=== PATIENT | male | born 1995 | race African-American/Black ===

== ENCOUNTER 2016-09-26 19:57 | Inpatient (IN) | payer OTHER ==
[2016-09-26 21:25] VITALS: BMI 22.1
--- NOTE | 2016-09-26 21:59 | HP ---
COWS - Scale Resting Pulse: 0= [place] 80 or Below Sweatin= Chills/Flushing Restless Observation: 5= Unable to Sit Still Pupil Size: 2= Moderately Dilated Bone or Joint Aches: 4=Acute Joint/Muscle Pain Runny Nose/ Eye Tearin= None GI Upset > 30mins: 3= Vomiting/Diarrhea Tremor Observation: 2= Slight Tremor Visible Yawning Observation: 0= None Anxiety or Irritability: 2=Irritable/Anxious Goose Flesh Skin: 0=Smooth Skin COWS Score: 19 CIWA Score - CIWA Score Nausea/Vomitin Muscle Tremors: 4-Moderate,w/Arms Extend Anxiety: 4-Mod. Anxious/Guarded Agitation: 4-Moderately Restless Paroxysmal Sweats: 3 Orientation: 1-Uncertain about Date Tacttile Disturbances: 3-Moderate Itch/Numb/Burn Auditory Disturbances: 0-None Visual Disturbances: 0-None Headache: 0-None Present CIWA-Ar Total Score: 22 Admission ROS BHS - HPI Chief Complaint: C/O XANAX AND PERCOCET DEPENDENCE WITH WITHDRAWAL SX'S. SEEKING DETOX TXMENT. Allergies/Adverse Reactions: Allergies Allergy/AdvReac Type Severity Reaction Status Date / Time No Known Allergies Allergy Verified 09/26/16 21:53 History of Present Illness: 20 Y.O. MALE WITH BENZO AND OXY DEPENDENCE ADMITTED FOR DETOX TXMENT. [facility] HE HAS BEEN REFFER[facility] BY [facility]. Exam Limitations: No Limitations - Ebola screening Have you traveled outside of the country in the last 21 days: No (N) Have you had contact with anyone from an Ebola affected area: No Have you been sick,other than usual withdrawal symptoms: No Do you have a fever: No - Review of Systems Constitutional: Chills, Loss of Appetite, Malaise, Night Sweats, Changes in sleep EENT: reports: No Symptoms Reported Respiratory: reports: Shortness of Breath Cardiac: reports: No Symptoms Reported GI: reports: Nausea, Poor Appetite, Vomiting : reports: No Symptoms Reported Musculoskeletal: reports: Back Pain Integumentary: reports: No Symptoms Reported Neuro: reports: No Symptoms reported Endocrine: reports: No Symptoms Reported Hematology: reports: No Symptoms Reported Psychiatric: reports: Anxious Other Systems: Reviewed and Negative Patient History - Patient Medical History Hx Anemia: No Hx Asthma: Yes (CHILDHOOD) Hx Chronic Obstructive Pulmonary Disease (COPD): No Hx Cancer: No Hx Cardiac Disorders: No Hx Congestive Heart Failure: No Hx Hypertension: No Hx Hypercholesterolemia: No Hx Pacemaker: No HX Cerebrovascular Accident: No Hx Seizures: No Hx Dementia: No Hx Diabetes: No Hx Gastrointestinal Disorders: No Hx Liver Disease: No Hx Genitourinary Disorders: No Hx Sexually Transmitted Disorders: No Hx Renal Disease (ESRD): No Hx Thyroid Disease: No Hx Human Immunodeficiency Virus (HIV): No Hx Hepatitis C: No Hx Depression: No Hx Suicide Attempt: No Hx Bipolar Disorder: No Hx Schizophrenia: No Other Medical History: DENIES - Patient Surgical History Past Surgical History: No - PPD History Previous Implant?: No Implanted On Prior [facility] Admission?: No PPD to be Administered?: Yes - Smoking Cessation Smoking history: Current every day smoker Have you smoked in the past 12 months: Yes Aproximately how many cigarettes per day: 5 Cigars Per Day: 0 Hx Chewing Tobacco Use: No Initiated information on smoking cessation: Yes 'Breaking Loose' booklet given: 09/26/16 - Substance & Tx. History Hx Alcohol Use: No Hx Substance Use: Yes Substance Use Type: Opiates (PERCOCET), Tranquilizers (XANAX) Hx Substance Use Treatment: No - Substances Abused PERCOCETS Route: Oral Frequency: Daily Amount used: 100MG Age of first use: 18 Date of Last Use: 09/26/16 (50 MG) XANAX Route: Oral Frequency: Daily Amount used: 10MG Age of first use: 18 Date of Last Use: 09/26/16 Family Disease History - Family Disease History Family Disease History: Other: Father (HTN) Admission Physical Exam S - Vital Signs Vital Signs: Vital Signs - 24 hr 09/26/16 09/26/16 21:22 21:42 Temperature 96.3 F L 96.3 F L Pulse Rate 64 64 Respiratory 18 18 Rate Blood Pressure 116/74 116/74 - Physical General Appearance: Yes: Appropriately Dressed, Tremorous, Anxious HEENTM: Yes: EOMI, Normocephalic, Normal Voice, DEMETRICE, Pharynx Normal Respiratory: Yes: Chest Non-Tender, No Respiratory Distress, Other (COARSE BREATH SOUNDS) Neck: Yes: No masses,lesions,Nodules, Supple, Trachea in good position Breast: Yes: Breast Exam Deferred Cardiology: Yes: Regular Rhythm, Regular Rate, S1, S2 Abdominal: Yes: Normal Bowel Sounds, Non Tender, Flat, Soft Genitourinary: Yes: Within Normal Limits Back: Yes: Within Normal Limits Musculoskeletal: Yes: full range of Motion, Gait Steady Extremities: Yes: Normal Capillary Refill, Normal Range of Motion, Non-Tender, Tremors Neurological: Yes: car sales consultant II-XII NML intact, Fully Oriented, Alert, Motor Strength 5/5 Integumentary: Yes: Normal Color, Warm Lymphatic: Yes: Within Normal Limits - Diagnostic (1) Opioid dependence with withdrawal Current Visit: Yes Status: Chronic (2) Sedative, hypnotic or anxiolytic dependence with withdrawal, uncomplicated Current Visit: Yes Status: Chronic (3) Nicotine dependence Current Visit: Yes Status: Chronic Qualifiers: Nicotine product type: cigarettes Substance use status: uncomplicated Qualified Code(s): F17.210 - Nicotine dependence, cigarettes, uncomplicated Cleared for Admission [facility] - Detox or Rehab [facility] Level of Care: Medically Managed Detox Regimen/Protocol: Methadone/Valium S Breath Alcohol Content Breath Alcohol Content: 0 Urine Drug Screen - Results Drug Screen Negative: No Urine Drug Screen Results: BZO-Benzodiazepines, OXY-Oxycodone
[2016-09-26] MEDS ORDERED: MAGNESIUM HYDROX 2400MG/30ML ORAL SUSPENSION 30 ML CUP PO PRN (22:12)
[2016-09-26] MEDS ORDERED: diazePAM 5 MG TABLET PO PRN (22:12)
[2016-09-26] MEDS ORDERED: IBUPROFEN 400 MG TABLET (FP) PO PRN (22:12)
[2016-09-26] MEDS ORDERED: diazePAM 5 MG TABLET PO ONE (22:12)
[2016-09-26] MEDS ORDERED: hydrOXYzine PAMOATE 50 MG CAPSULE (FP) PO PRN (22:12)
[2016-09-26] MEDS ORDERED: MENTHOL/PHENOL 1 EACH UD MM PRN (22:12)
[2016-09-26] MEDS ORDERED: guaiFENesin/D-METHORPHAN HB 10 ML UNIT-DOSE CUPS PO PRN (22:12)
[2016-09-26] MEDS ORDERED: P-EPHED 60MG/TRIPROLIDI 2.5MG TABLET PO PRN (22:12)
[2016-09-26] MEDS ORDERED: METHADONE HCL 10 MG TABLET (FOR DETOX USE ONLY) PO ONE ×2 (22:12→23:00)
[2016-09-26] MEDS ORDERED: LOPERAMIDE HCL 2 MG CAPSULE PO PRN (22:12)
[2016-09-26] MEDS ORDERED: ACETAMINOPHEN 325 MG TABLET (FP) PO PRN (22:12)
[2016-09-26] MEDS ORDERED: MAG HYDROX/AL HYDROX/SIMETH 30 ML UNIT-DOSE CUP PO PRN (22:12)
[2016-09-26] MEDS ORDERED: MAGNESIUM CITRATE 300 ML BOTTLE PO PRN (22:12)
[2016-09-26] MEDS: diazePAM 5 MG TABLET PO SCH (23:00)
[2016-09-27] MEDS: diazePAM 5 MG TABLET PO SCH ×3 (05:54→22:26)
[2016-09-27] MEDS ORDERED: METHADONE HCL 10 MG TABLET (FOR DETOX USE ONLY) PO SCH (10:00)
[2016-09-27 10:32] LABS: MCH 28.6 pg (25.7-33.7); MEAN CELL VOLUME 83.9 fl (80-96); MEAN PLT VOLUME 9.5 fl (7.5-11.1); PLATELET COUNT 171 K/MM3 (134-434); RDW 13.8 % (11.9-15.9)
[2016-09-27 10:57] LABS: ALBUMIN 3.3 g/dl (3.4-5.0); ANION GAP 10 (8-16); CO2 27 mmol/L (21-32); GLUCOSE,RANDOM 91 mg/dL (74-106); SGOT/AST 29 U/L (15-37); SGPT/ALT 74 U/L (12-78)
[2016-09-27 10:59] LABS: ALK PHOS 80 U/L (45-117); BILIRUBIN,TOTAL 0.3 mg/dL (0.2-1.0); CALCIUM 8.4 mg/dL (8.5-10.1); COCKROFT - GAULT 124.94; CREATININE 0.9 mg/dL (0.7-1.3)
[2016-09-27] MEDS: NICOTINE 14 MG/24 HOURS TOPICAL PATCH TD SCH (11:01)
[2016-09-27] MEDS: PRENATAL VITAMINS W/ FOLIC ACID TABLET (FP) PO SCH (11:01)
--- NOTE | 2016-09-27 11:52 | PN ---
S CIWA - CIWA Score Nausea/Vomitin-No Nausea/No Vomiting Muscle Tremors: 3 Anxiety: 4-Mod. Anxious/Guarded Agitation: 3 Paroxysmal Sweats: 3 Orientation: 0-Oriented Tacttile Disturbances: 0-None Auditory Disturbances: 0-None Visual Disturbances: 0-None Headache: 0-None Present CIWA-Ar Total Score: 13 BHS COWS - Scale Resting Pulse: 1= [place] 81-100 Sweatin=Flushed/Facial Moisture Restless Observation: 1= Difficult to Sit Still Pupil Size: 0= Normal to Room Light Bone or Joint Aches: 2= Severe Diffuse Aches Runny Nose/ Eye Tearin= Runny Nose/Eyes GI Upset > 30mins: 2= Nausea/Diarrhea Tremor Observation of Outstretched Hands: 2= Slight Tremor Visible Yawning Observation: 1= 1-2x During Session Anxiety or Irritability: 2=Irritable/Anxious Goose Flesh Skin: 0=Smooth Skin COWS Score: 15 BHS Progress Note (SOAP) Subjective: Anxiety,tremors,sweating,interrupted sleep,restless. Objective: 09/27/16 11:47 Last Vital Signs Temp Pulse Resp BP Pulse Ox 95.9 F L 84 18 121/72 09/27/16 10:00 09/27/16 10:00 09/27/16 10:00 09/27/16 10:00 Laboratory Results - last 24 hr 09/27/16 09/27/16 07:00 07:00 WBC 5.0 RBC 4.63 Hgb 13.2 Hct 38.8 MCV 83.9 MCHC 34.0 RDW 13.8 Plt Count 171 MPV 9.5 Sodium 143 Potassium 3.9 Chloride 106 Carbon Dioxide 27 Anion Gap 10 BUN 15 Creatinine 0.9 Creat Clearance w eGFR > 60 Random Glucose 91 Calcium 8.4 L Total Bilirubin 0.3 AST 29 ALT 74 Alkaline Phosphatase 80 Total Protein 6.0 L Albumin 3.3 L labs noted EKG reveals moderate voltage criteria for LVH, ST elevation with T-wave inversion consider early repolarization or pericarditis. Pt. has no symptoms of chest pain. Assessment: 09/27/16 11:48 Withdrawal sx. EKG changes most likely caused by drug use in a patient with thin chest. Plan: Continue detox
[2016-09-27 12:39] LABS: HIV 1 & 2 AB NEGATIVE; HIV 1 AGp24 NEGATIVE
[2016-09-27 14:01] LABS: URINE APPEARANCE CLEAR; URINE BILIRUBIN NEGATIVE (NEGATIVE); URINE BLOOD NEGATIVE (NEGATIVE); URINE COLOR YELLOW; URINE GLUCOSE (UA) NEGATIVE (NEGATIVE); URINE KETONE NEGATIVE (NEGATIVE); URINE LEUK ESTERASE NEGATIVE (NEGATIVE); URINE NITRITE NEGATIVE (NEGATIVE); URINE PROTEIN NEGATIVE (NEGATIVE); URINE UROBILINOGEN NEGATIVE E.U./dl (0.2-1.0)
--- NOTE | 2016-09-27 17:19 | EKG ---
Test Reason : Blood Pressure : / mmHG Vent. Rate : 055 BPM Atrial Rate : 055 BPM P-R Int : 132 ms QRS Dur : 096 ms QT Int : 442 ms P-R-T Axes : 036 049 014 degrees QTc Int : 422 ms SINUS BRADYCARDIA MODERATE VOLTAGE CRITERIA FOR LVH, MAY BE NORMAL VARIANT ST ELEVATION, CONSIDER EARLY REPOLARIZATION, PERICARDITIS, OR INJURY NONSPECIFIC ST AND T WAVE ABNORMALITY ABNORMAL ECG WHEN COMPARED WITH ECG OF 26-SEP-2016 22:04, T WAVE INVERSION MORE EVIDENT IN ANTERIOR LEADS Confirmed by FRANKI ROSS MD ([id number]) on 09/27/2016 5:18:41 PM Referred By: Confirmed By:FRANKI ROSS MD
--- NOTE | 2016-09-27 17:20 | EKG ---
Test Reason : Blood Pressure : / mmHG Vent. Rate : 051 BPM Atrial Rate : 051 BPM P-R Int : 130 ms QRS Dur : 088 ms QT Int : 422 ms P-R-T Axes : 058 049 020 degrees QTc Int : 388 ms SINUS BRADYCARDIA ABNORMAL ECG NO PREVIOUS ECGS AVAILABLE Confirmed by FRANKI ROSS MD ([id number]) on 09/27/2016 5:19:43 PM Referred By: Confirmed By:FRANKI ROSS MD
[2016-09-27] MEDS: THIAMINE HCL 100 MG TABLET (FP) PO SCH (22:26)
[2016-09-27] MEDS: diphenhydrAMINE HCL 50 MG CAPSULE PO PRN (22:26)
[2016-09-27] MEDS ORDERED: NICOTINE POLACRILEX 2 MG GUM BUC PRN (23:48)
[2016-09-28] MEDS: NICOTINE 14 MG/24 HOURS TOPICAL PATCH TD SCH (10:44)
[2016-09-28] MEDS: METHADONE HCL 5 MG TABLET (FOR DETOX USE ONLY) PO SCH (10:44)
[2016-09-28] MEDS: diazePAM 5 MG TABLET PO SCH ×2 (10:44→22:34)
[2016-09-28] MEDS: PRENATAL VITAMINS W/ FOLIC ACID TABLET (FP) PO SCH (10:44)
--- NOTE | 2016-09-28 11:31 | PN ---
[facility] CIWA - CIWA Score Nausea/Vomitin Muscle Tremors: 3 Anxiety: 3 Agitation: 2 Paroxysmal Sweats: 1-Minimal Palms Moist Orientation: 0-Oriented Tacttile Disturbances: 1-Very Mild Itch/Numbness Auditory Disturbances: 1-Very Mild Visual Disturbances: 1-Very Mild Sensitivity Headache: 2-Mild CIWA-Ar Total Score: 17 BHS COWS - Scale Resting Pulse: 0= [place] 80 or Below Sweatin= Chills/Flushing Restless Observation: 3= Extraneous Movement Pupil Size: 1= Pupils >than Normal Bone or Joint Aches: 2= Severe Diffuse Aches Runny Nose/ Eye Tearin= Runny Nose/Eyes GI Upset > 30mins: 3= Vomiting/Diarrhea Tremor Observation of Outstretched Hands: 2= Slight Tremor Visible Yawning Observation: 1= 1-2x During Session Anxiety or Irritability: 2=Irritable/Anxious Goose Flesh Skin: 0=Smooth Skin COWS Score: 17 S Progress Note (SOAP) Subjective: ALERT,IRRITABLE,ANXIOUS,INTERRUPTED SLEEP,PAIN IN THE BODY AND BACK Objective: 09/28/16 11:28 Vital Signs Temperature 98.5 F 09/28/16 10:14 Pulse Rate 58 L 09/28/16 10:14 Respiratory Rate 18 09/28/16 10:14 Blood Pressure 118/64 09/28/16 10:14 O2 Sat by Pulse Oximetry (%) Laboratory Last Values WBC 5.0 K/mm3 (4.0-10.0) 09/27/16 07:00 RBC 4.63 M/mm3 (4.00-5.60) 09/27/16 07:00 Hgb 13.2 GM/dL (11.7-16.9) 09/27/16 07:00 Hct 38.8 % (35.4-49) 09/27/16 07:00 MCV 83.9 fl (80-96) 09/27/16 07:00 MCHC 34.0 g/dl (32.0-35.9) 09/27/16 07:00 RDW 13.8 % (11.9-15.9) 09/27/16 07:00 Plt Count 171 K/MM3 (134-434) 09/27/16 07:00 MPV 9.5 fl (7.5-11.1) 09/27/16 07:00 Sodium 143 mmol/L (136-145) 09/27/16 07:00 Potassium 3.9 mmol/L (3.5-5.1) 09/27/16 07:00 Chloride 106 mmol/L (98-107) 09/27/16 07:00 Carbon Dioxide 27 mmol/L (21-32) 09/27/16 07:00 Anion Gap 10 (8-16) 09/27/16 07:00 BUN 15 mg/dL (7-18) 09/27/16 07:00 Creatinine 0.9 mg/dL (0.7-1.3) 09/27/16 07:00 Creat Clearance w eGFR > 60 (>60) 09/27/16 07:00 Random Glucose 91 mg/dL (74-106) 09/27/16 07:00 Calcium 8.4 mg/dL (8.5-10.1) L 09/27/16 07:00 Total Bilirubin 0.3 mg/dL (0.2-1.0) 09/27/16 07:00 AST 29 U/L (15-37) 09/27/16 07:00 ALT 74 U/L (12-78) 09/27/16 07:00 Alkaline Phosphatase 80 U/L (45-117) 09/27/16 07:00 Total Protein 6.0 g/dl (6.4-8.2) L 09/27/16 07:00 Albumin 3.3 g/dl (3.4-5.0) L 09/27/16 07:00 Urine Color Yellow 09/27/16 11:50 Urine Appearance Clear 09/27/16 11:50 Urine pH 5.0 (5.0-8.0) 09/27/16 11:50 Ur Specific [place] 1.020 (1.005-1.025) 09/27/16 11:50 Urine Protein Negative (NEGATIVE) 09/27/16 11:50 Urine Glucose (UA) Negative (NEGATIVE) 09/27/16 11:50 Urine Ketones Negative (NEGATIVE) 09/27/16 11:50 Urine Blood Negative (NEGATIVE) 09/27/16 11:50 Urine Nitrite Negative (NEGATIVE) 09/27/16 11:50 Urine Bilirubin Negative (NEGATIVE) 09/27/16 11:50 Urine Urobilinogen Negative E.U./dl (0.2-1.0) 09/27/16 11:50 Ur Leukocyte Esterase Negative (NEGATIVE) 09/27/16 11:50 RPR Titer Nonreactive (NONREACTIVE) 09/27/16 07:00 Hepatitis C Antibody 0.4 s/co ratio (0.0-0.9) 09/26/16 07:00 HIV 1&2 Antibody Screen Negative 09/27/16 07:00 HIV P24 Antigen Negative 09/27/16 07:00 Assessment: 09/28/16 11:30 WITHDRAWAL SYMPTOM 09/28/16 11:30 NO CHEST PAIN,NO SOB,NO DIZZINESS Plan: WITHDRAWAL SYMPTOM,CONTINUE DETOX
[2016-09-28] MEDS: diphenhydrAMINE HCL 50 MG CAPSULE PO PRN (22:33)
[2016-09-28] MEDS: THIAMINE HCL 100 MG TABLET (FP) PO SCH (22:33)
--- NOTE | 2016-09-29 09:56 | PN ---
BHS Progress Note (SOAP) Subjective: Sweating,interrupted sleep,restless Objective: 09/29/16 09:52 Vital Signs - 8 hr 09/29/16 09/29/16 03:23 09:26 Temperature 96.2 F L Pulse Rate 56 L Respiratory 18 18 Rate Blood Pressure 115/62 Laboratory Tests 09/26/16 09/27/16 09/27/16 07:00 07:00 07:00 WBC 5.0 RBC 4.63 Hgb 13.2 Hct 38.8 MCV 83.9 MCHC 34.0 RDW 13.8 Plt Count 171 MPV 9.5 Sodium 143 Potassium 3.9 Chloride 106 Carbon Dioxide 27 Anion Gap 10 BUN 15 Creatinine 0.9 Creat Clearance w eGFR > 60 Random Glucose 91 Calcium 8.4 L Total Bilirubin 0.3 AST 29 ALT 74 Alkaline Phosphatase 80 Total Protein 6.0 L Albumin 3.3 L Urine Color Urine Appearance Urine pH Ur Specific [place] Urine Protein Urine Glucose (UA) Urine Ketones Urine Blood Urine Nitrite Urine Bilirubin Urine Urobilinogen Ur Leukocyte Esterase RPR Titer Hepatitis C Antibody 0.4 HIV 1&2 Antibody Screen HIV P24 Antigen 09/27/16 09/27/16 09/27/16 07:00 07:00 11:50 WBC RBC Hgb Hct MCV MCHC RDW Plt Count MPV Sodium Potassium Chloride Carbon Dioxide Anion Gap BUN Creatinine Creat Clearance w eGFR Random Glucose Calcium Total Bilirubin AST ALT Alkaline Phosphatase Total Protein Albumin Urine Color Yellow Urine Appearance Clear Urine pH 5.0 Ur Specific [place] 1.020 Urine Protein Negative Urine Glucose (UA) Negative Urine Ketones Negative Urine Blood Negative Urine Nitrite Negative Urine Bilirubin Negative Urine Urobilinogen Negative Ur Leukocyte Esterase Negative RPR Titer Nonreactive Hepatitis C Antibody HIV 1&2 Antibody Screen Negative HIV P24 Antigen Negative labs noted Assessment: 09/29/16 09:56 Withdrawal sx. Plan: Continue detox
[2016-09-29] MEDS: diazePAM 5 MG TABLET PO SCH ×2 (10:44→22:38)
[2016-09-29] MEDS: METHADONE HCL 5 MG TABLET (FOR DETOX USE ONLY) PO SCH (10:44)
[2016-09-29] MEDS: PRENATAL VITAMINS W/ FOLIC ACID TABLET (FP) PO SCH (10:44)
[2016-09-29] MEDS: NICOTINE 14 MG/24 HOURS TOPICAL PATCH TD SCH (10:44)
[2016-09-29] MEDS: THIAMINE HCL 100 MG TABLET (FP) PO SCH (22:38)
[2016-09-30] MEDS: PRENATAL VITAMINS W/ FOLIC ACID TABLET (FP) PO SCH (09:45)
[2016-09-30] MEDS: NICOTINE 14 MG/24 HOURS TOPICAL PATCH TD SCH (09:46)
[2016-09-30] MEDS ORDERED: METHADONE HCL 10 MG TABLET (FOR DETOX USE ONLY) PO SCH (10:00)
[2016-09-30] MEDS ORDERED: diazePAM 5 MG TABLET PO SCH (10:00)
--- NOTE | 2016-09-30 14:06 | PN ---
BHS Progress Note (SOAP) Subjective: Sweating,interrupted sleep,restless Objective: 09/30/16 14:04 Vital Signs - 8 hr 09/30/16 09/30/16 09/30/16 06:16 09:47 13:09 Temperature 97.4 F L 97.7 F 97.6 F Pulse Rate 60 78 72 Respiratory 16 18 18 Rate Blood Pressure 118/68 108/72 121/65 Laboratory Last Values WBC 5.0 K/mm3 (4.0-10.0) 09/27/16 07:00 RBC 4.63 M/mm3 (4.00-5.60) 09/27/16 07:00 Hgb 13.2 GM/dL (11.7-16.9) 09/27/16 07:00 Hct 38.8 % (35.4-49) 09/27/16 07:00 MCV 83.9 fl (80-96) 09/27/16 07:00 MCHC 34.0 g/dl (32.0-35.9) 09/27/16 07:00 RDW 13.8 % (11.9-15.9) 09/27/16 07:00 Plt Count 171 K/MM3 (134-434) 09/27/16 07:00 MPV 9.5 fl (7.5-11.1) 09/27/16 07:00 Sodium 143 mmol/L (136-145) 09/27/16 07:00 Potassium 3.9 mmol/L (3.5-5.1) 09/27/16 07:00 Chloride 106 mmol/L (98-107) 09/27/16 07:00 Carbon Dioxide 27 mmol/L (21-32) 09/27/16 07:00 Anion Gap 10 (8-16) 09/27/16 07:00 BUN 15 mg/dL (7-18) 09/27/16 07:00 Creatinine 0.9 mg/dL (0.7-1.3) 09/27/16 07:00 Creat Clearance w eGFR > 60 (>60) 09/27/16 07:00 Random Glucose 91 mg/dL (74-106) 09/27/16 07:00 Calcium 8.4 mg/dL (8.5-10.1) L 09/27/16 07:00 Total Bilirubin 0.3 mg/dL (0.2-1.0) 09/27/16 07:00 AST 29 U/L (15-37) 09/27/16 07:00 ALT 74 U/L (12-78) 09/27/16 07:00 Alkaline Phosphatase 80 U/L (45-117) 09/27/16 07:00 Total Protein 6.0 g/dl (6.4-8.2) L 09/27/16 07:00 Albumin 3.3 g/dl (3.4-5.0) L 09/27/16 07:00 Urine Color Yellow 09/27/16 11:50 Urine Appearance Clear 09/27/16 11:50 Urine pH 5.0 (5.0-8.0) 09/27/16 11:50 Ur Specific [place] 1.020 (1.005-1.025) 09/27/16 11:50 Urine Protein Negative (NEGATIVE) 09/27/16 11:50 Urine Glucose (UA) Negative (NEGATIVE) 09/27/16 11:50 Urine Ketones Negative (NEGATIVE) 09/27/16 11:50 Urine Blood Negative (NEGATIVE) 09/27/16 11:50 Urine Nitrite Negative (NEGATIVE) 09/27/16 11:50 Urine Bilirubin Negative (NEGATIVE) 09/27/16 11:50 Urine Urobilinogen Negative E.U./dl (0.2-1.0) 09/27/16 11:50 Ur Leukocyte Esterase Negative (NEGATIVE) 09/27/16 11:50 RPR Titer Nonreactive (NONREACTIVE) 09/27/16 07:00 Hepatitis C Antibody 0.4 s/co ratio (0.0-0.9) 09/26/16 07:00 HIV 1&2 Antibody Screen Negative 09/27/16 07:00 HIV P24 Antigen Negative 09/27/16 07:00 labs noted Assessment: 09/30/16 14:05 Withdrawal sx. Plan: Continue detox
[2016-09-30] MEDS: diphenhydrAMINE HCL 50 MG CAPSULE PO PRN (23:05)
[2016-09-30] MEDS: THIAMINE HCL 100 MG TABLET (FP) PO SCH (23:05)
[2016-10-01] MEDS ORDERED: METHADONE HCL 5 MG TABLET (FOR DETOX USE ONLY) PO SCH (06:00)
[2016-10-01 06:30] VITALS: BP 118/70; PULSE 53; TEMP 96.4
--- NOTE | 2016-10-01 16:25 | DS ---
[facility] Detox Discharge Summary Admission Date: 09/26/16 Discharge Date: 10/01/16 - History Present History: Opioid Dependence, Sedative Dependence Additional Comments: ADVISED PATIENT TO FOLLOW-UP WITH WILDLIFE POLICY PROFESSIONAL AFTER DISCHARGE FROM DETOX FOR GENERAL MEDICAL ASSESSMENT. Pertinent Past History: Asthma. - Physical Exam Results Vital Signs: Vital Signs Temperature 96.4 F L 10/01/16 06:29 Pulse Rate 53 L 10/01/16 06:29 Respiratory Rate 18 10/01/16 06:29 Blood Pressure 118/70 10/01/16 06:29 O2 Sat by Pulse Oximetry (%) Pertinent Admission Physical Exam Findings: WITHDRAWAL SYMPTOMS. Laboratory Tests 09/26/16 09/27/16 09/27/16 07:00 07:00 07:00 WBC 5.0 RBC 4.63 Hgb 13.2 Hct 38.8 MCV 83.9 MCHC 34.0 RDW 13.8 Plt Count 171 MPV 9.5 Sodium 143 Potassium 3.9 Chloride 106 Carbon Dioxide 27 Anion Gap 10 BUN 15 Creatinine 0.9 Creat Clearance w eGFR > 60 Random Glucose 91 Calcium 8.4 L Total Bilirubin 0.3 AST 29 ALT 74 Alkaline Phosphatase 80 Total Protein 6.0 L Albumin 3.3 L Urine Color Urine Appearance Urine pH Ur Specific [place] Urine Protein Urine Glucose (UA) Urine Ketones Urine Blood Urine Nitrite Urine Bilirubin Urine Urobilinogen Ur Leukocyte Esterase RPR Titer Hepatitis C Antibody 0.4 HIV 1&2 Antibody Screen HIV P24 Antigen 09/27/16 09/27/16 09/27/16 07:00 07:00 11:50 WBC RBC Hgb Hct MCV MCHC RDW Plt Count MPV Sodium Potassium Chloride Carbon Dioxide Anion Gap BUN Creatinine Creat Clearance w eGFR Random Glucose Calcium Total Bilirubin AST ALT Alkaline Phosphatase Total Protein Albumin Urine Color Yellow Urine Appearance Clear Urine pH 5.0 Ur Specific [place] 1.020 Urine Protein Negative Urine Glucose (UA) Negative Urine Ketones Negative Urine Blood Negative Urine Nitrite Negative Urine Bilirubin Negative Urine Urobilinogen Negative Ur Leukocyte Esterase Negative RPR Titer Nonreactive Hepatitis C Antibody HIV 1&2 Antibody Screen Negative HIV P24 Antigen Negative LABS NOTED. - Treatment Hospital Course: Detox Protocol Followed, Detoxed Safely, Responded well, Discharged Condition Good Patient has Accepted a Rehab Referral to: NO - PT. ELECTING TO GO TO RETURN TO PREVIOUS OUTPATIENT DAY PROGRAM. - Medication Discharge Medications: Ambulatory Orders NK [No Known Home Medication] 09/26/16 - Diagnosis (1) Opioid dependence with withdrawal Status: Acute (2) Sedative, hypnotic or anxiolytic dependence with withdrawal, uncomplicated Status: Acute (3) Nicotine dependence Status: Chronic Qualifiers: Nicotine product type: cigarettes Substance use status: uncomplicated Qualified Code(s): F17.210 - Nicotine dependence, cigarettes, uncomplicated - AMA Did Patient Leave Against Medical Advice: No
== END 2016-10-01 09:01 | disposition home or self-care (01) | DRG 773 ==
LOC: YASAS 19:57 → Y3N 22:26
PROVIDERS: ADMIT Internal Medicine; ATTEND Internal Medicine
PROC: HZ2ZZZZ Detoxification Services for Substance Abuse Treatment (ICD-10-PCS; principal; 2016-10-01)
DX: F11.23 Opioid dependence with withdrawal (principal); F13.230 Sedative, hypnotic or anxiolytic dependence with withdrawal, uncomplicated; F17.210 Nicotine dependence, cigarettes, uncomplicated
CPT/HCPCS: 36415; 80053; 81003; 85027; 86593; 86803; 87389; 93005; 93010

== ENCOUNTER 2018-08-07 21:27 | Inpatient (IN) | payer OTHER ==
[2018-08-07 22:35] VITALS: BMI 22.8
--- NOTE | 2018-08-07 23:48 | HP ---
COWS - Scale Resting Pulse: 0= [place] 80 or Below Sweatin=Flushed/Facial Moisture Restless Observation: 0= Sits Still Pupil Size: 1= Pupils >than Normal Bone or Joint Aches: 2= Severe Diffuse Aches Runny Nose/ Eye Tearin= Runny Nose/Eyes GI Upset > 30mins: 3= Vomiting/Diarrhea (vomiting x 1, diarrhea x 2) Tremor Observation: 4= Gross Tremor/Twitching Yawning Observation: 1= 1-2x During Session Anxiety or Irritability: 4=Extreme Anxiety Goose Flesh Skin: 0=Smooth Skin COWS Score: 19 CIWA Score - Admission Criteria [facility] Guidelines: Admission for Medically Managed Detox: Requires at least one of the followin. CIWA greater than 12 2. Seizures within the past 24 hours 3. Delirium tremens within the past 24 hours 4. Hallucinations within the past 24 hours 5. Acute intervention needed for co occurring medical disorder 6. Acute intervention needed for co occurring psychiatric disorder 7. Severe withdrawal that cannot be handled at a lower level of care (continued vomiting, continued diarrhea, abnormal vital signs) requiring intravenous medication and/or fluids 8. Admission ROS [facility] Chief Complaint: Heroin withdrawal symptoms Allergies/Adverse Reactions: Allergies Allergy/AdvReac Type Severity Reaction Status Date / Time No Known Allergies Allergy Verified 09/26/16 21:53 History of Present Illness: 22 years old male with 6 months history of heroin dependence is seeking admission to detox. Patient last admission was in 2017 to detox from opioid ( Percocet). He reports insignificant period of sobriety. He has medical history of asthma. He denies suicide attempt and suicidal ideation at this time Exam Limitations: No Limitations - Ebola screening Have you traveled outside of the country in the last 21 days: No (N) Have you had contact with anyone from an Ebola affected area: No Have you been sick,other than usual withdrawal symptoms: No Do you have a fever: No - Review of Systems Constitutional: Chills, Malaise, Night Sweats, Changes in sleep EENT: reports: No Symptoms Reported, Nose Congestion, Sinus Pressure Respiratory: reports: No Symptoms reported Cardiac: reports: No Symptoms Reported GI: reports: Diarrhea, Nausea, Poor Appetite, Vomiting, Abdominal cramping : reports: No Symptoms Reported Musculoskeletal: reports: Back Pain Integumentary: reports: Dryness, Flushing Neuro: reports: Tremors Endocrine: reports: No Symptoms Reported Hematology: reports: No Symptoms Reported Psychiatric: reports: Mood/Affect Appropiate, Orientated x3 Other Systems: Reviewed and Negative Patient History - Patient Medical History Hx Anemia: No Hx Asthma: Yes (CHILDHOOD - Albuterol) Hx Chronic Obstructive Pulmonary Disease (COPD): No Hx Cancer: No Hx Cardiac Disorders: No Hx Congestive Heart Failure: No Hx Hypertension: No Hx Hypercholesterolemia: No Hx Pacemaker: No HX Cerebrovascular Accident: No Hx Seizures: No Hx Dementia: No Hx Diabetes: No Hx Gastrointestinal Disorders: No Hx Liver Disease: No Hx Genitourinary Disorders: No Hx Sexually Transmitted Disorders: No Hx Renal Disease (ESRD): No Hx Thyroid Disease: No Hx Human Immunodeficiency Virus (HIV): No Hx Hepatitis C: No Hx Depression: No Hx Suicide Attempt: No Hx Bipolar Disorder: No Hx Schizophrenia: No - Patient Surgical History Past Surgical History: No - PPD History Previous Implant?: Yes Documented Results: Negative w/proof Date: 09/28/16 PPD to be Administered?: Yes - Reproductive History Patient is a Female of Child Bearing Age (11 -55 yrs old): No (MALE) - Smoking Cessation Smoking history: Current every day smoker Have you smoked in the past 12 months: Yes Aproximately how many cigarettes per day: 5 Cigars Per Day: 0 Hx Chewing Tobacco Use: No Initiated information on smoking cessation: Yes 'Breaking Loose' booklet given: 08/07/18 - Substance & Tx. History Hx Alcohol Use: No Hx Substance Use: Yes Substance Use Type: Heroin Hx Substance Use Treatment: No - Substances Abused Heroin Route: Inhalation Frequency: Daily Amount used: 8 bags Age of first use: 20 Date of Last Use: 08/05/18 Family Disease History - Family Disease History Family Disease History: Other: Father (HTN) Admission Physical Exam BHS - Vital Signs Vital Signs: Vital Signs - 24 hr 08/07/18 22:31 Temperature 97.9 F Pulse Rate 66 Respiratory 19 Rate Blood Pressure 147/87 - Physical General Appearance: Yes: Moderate Distress, Tremorous, Anxious HEENTM: Yes: EOMI, Normal ENT Inspection, Normal Voice Respiratory: Yes: Lungs Clear, Normal Breath Sounds, No Respiratory Distress Neck: Yes: Supple Breast: Yes: Breast Exam Deferred Cardiology: Yes: Regular Rhythm, Regular Rate Abdominal: Yes: Normal Bowel Sounds Genitourinary: Yes: Within Normal Limits Back: Yes: Normal Inspection Musculoskeletal: Yes: Muscle Pain Extremities: Yes: Tremors Neurological: Yes: Alert, Normal Mood/Affect Integumentary: Yes: Warm Lymphatic: Yes: Within Normal Limits - Diagnostic (1) Asthma Current Visit: Yes Status: Chronic Qualifiers: Asthma severity: mild Asthma persistence: intermittent (2) Opioid dependence with withdrawal Current Visit: Yes Status: Chronic (3) Nicotine dependence Current Visit: Yes Status: Chronic Qualifiers: Nicotine product type: cigarettes Substance use status: uncomplicated Qualified Code(s): F17.210 - Nicotine dependence, cigarettes, uncomplicated Cleared for Admission [facility] - Detox or Rehab [facility] Level of Care: Medically Managed Detox Regimen/Protocol: Methadone [facility] Breath Alcohol Content Breath Alcohol Content: 0 Urine Drug Screen - Results Drug Screen Negative: No Urine Drug Screen Results: OPI-Opiates, MET-Methamphetamine, FEN-Fentanyl Inpatient Rehab Admission - Rehab Decision to Admit Inpatient rehab admission?: No
[2018-08-07] MEDS ORDERED: MAGNESIUM CITRATE 300 ML BOTTLE PO PRN (23:54)
[2018-08-07] MEDS ORDERED: hydrOXYzine PAMOATE 25 MG CAPSULE (FP) PO PRN (23:54)
[2018-08-07] MEDS ORDERED: cloNIDine HCL 0.1 MG TABLET PO PRN (23:54)
[2018-08-07] MEDS ORDERED: ACETAMINOPHEN 325 MG TABLET (FP) PO PRN ×2 (23:54)
[2018-08-07] MEDS ORDERED: BISMUTH SUBSALICYLATE 524 MG/30 ML UD PO PRN (23:54)
[2018-08-07] MEDS ORDERED: MENTHOL/PHENOL 1 EACH UD MM PRN (23:54)
[2018-08-07] MEDS ORDERED: MAGNESIUM HYDROX 2400MG/30ML ORAL SUSPENSION 30 ML CUP PO PRN (23:54)
[2018-08-07] MEDS ORDERED: IBUPROFEN 400 MG TABLET (FP) PO PRN (23:54)
[2018-08-07] MEDS ORDERED: MELATONIN 5 MG TABLETS PO PRN (23:54)
[2018-08-07] MEDS ORDERED: METHOCARBAMOL 500 MG TABLET PO PRN (23:54)
[2018-08-07] MEDS ORDERED: MAG HYDROX/AL HYDROX/SIMETH 30 ML UNIT-DOSE CUP PO PRN (23:54)
[2018-08-08] MEDS ORDERED: METHADONE HCL 10 MG TABLET (FOR DETOX USE ONLY) PO ONE (00:15)
[2018-08-08] MEDS ORDERED: METHADONE HCL 5 MG TABLET (FOR DETOX USE ONLY) PO ONE (10:00)
[2018-08-08] MEDS: PRENATAL VITAMINS W/ FOLIC ACID TABLET (FP) PO SCH (10:24)
[2018-08-08] MEDS: NICOTINE 14 MG/24 HOURS TOPICAL PATCH TD SCH (10:24)
[2018-08-08 12:39] LABS: HEMOGLOBIN 14.2 GM/dL (11.7-16.9); MCH 28.4 pg (25.7-33.7); MCHC 33.8 g/dl (32.0-35.9); MEAN CELL VOLUME 84.2 fl (80-96); MEAN PLT VOLUME 9.8 fl (7.5-11.1); PLATELET COUNT 246 K/MM3 (134-434); RBC 4.99 M/mm3 (4.00-5.60); RDW 13.5 % (11.9-15.9)
[2018-08-08 13:04] LABS: ALBUMIN 3.5 g/dl (3.4-5.0); ALK PHOS 97 U/L (45-117); ANION GAP 10 MMOL/L (8-16); BILIRUBIN,TOTAL 0.3 mg/dL (0.2-1); BLOOD UREA NITROGEN 17 mg/dL (7-18); CALCIUM 8.7 mg/dL (8.5-10.1); CHLORIDE 105 mmol/L (98-107); CO2 24 mmol/L (21-32); GLUCOSE,RANDOM 95 mg/dL (74-106); POTASSIUM 4.3 mmol/L (3.5-5.1); SGOT/AST 31 U/L (15-37); SGPT/ALT 41 U/L (13-61); SODIUM 139 mmol/L (136-145); TOT PROT 6.7 g/dl (6.4-8.2)
[2018-08-08] MEDS ORDERED: THIAMINE HCL 100 MG TABLET (FP) PO SCH (22:00)
[2018-08-09 09:20] VITALS: BP 134/88; PULSE 68; TEMP 98.2
[2018-08-09] MEDS ORDERED: METHADONE HCL 10 MG TABLET (FOR DETOX USE ONLY) PO ONE (10:00)
--- NOTE | 2018-08-09 10:20 | PN ---
[facility] COWS - Scale Resting Pulse: 0= PA 80 or Below Sweatin= Chills/Flushing Restless Observation: 3= Extraneous Movement Pupil Size: 1= Pupils >than Normal Bone or Joint Aches: 2= Severe Diffuse Aches Runny Nose/ Eye Tearin= Nasal Congestion GI Upset > 30mins: 2= Nausea/Diarrhea Tremor Observation of Outstretched Hands: 2= Slight Tremor Visible Yawning Observation: 1= 1-2x During Session Anxiety or Irritability: 2=Irritable/Anxious Goose Flesh Skin: 0=Smooth Skin COWS Score: 15 [facility] Progress Note (SOAP) Subjective: alert,irritable,anxious,interrupted sleep,pain in the body and back,tremor Objective: 08/09/18 10:17 Vital Signs Temperature 98.2 F 08/09/18 09:20 Pulse Rate 68 08/09/18 09:20 Respiratory Rate 18 08/09/18 09:20 Blood Pressure 134/88 08/09/18 09:20 O2 Sat by Pulse Oximetry (%) Laboratory Last Values WBC 5.0 K/mm3 (4.0-10.0) 08/08/18 08:00 RBC 4.99 M/mm3 (4.00-5.60) 08/08/18 08:00 Hgb 14.2 GM/dL (11.7-16.9) 08/08/18 08:00 Hct 42.0 % (35.4-49) 08/08/18 08:00 MCV 84.2 fl (80-96) 08/08/18 08:00 MCH 28.4 pg (25.7-33.7) 08/08/18 08:00 MCHC 33.8 g/dl (32.0-35.9) 08/08/18 08:00 RDW 13.5 % (11.9-15.9) 08/08/18 08:00 Plt Count 246 K/MM3 (134-434) D 08/08/18 08:00 MPV 9.8 fl (7.5-11.1) 08/08/18 08:00 Sodium 139 mmol/L (136-145) 08/08/18 08:00 Potassium 4.3 mmol/L (3.5-5.1) 08/08/18 08:00 Chloride 105 mmol/L (98-107) 08/08/18 08:00 Carbon Dioxide 24 mmol/L (21-32) 08/08/18 08:00 Anion Gap 10 MMOL/L (8-16) 08/08/18 08:00 BUN 17 mg/dL (7-18) 08/08/18 08:00 Creatinine 1.0 mg/dL (0.55-1.3) 08/08/18 08:00 Creat Clearance w eGFR 92.60 (>60) 08/08/18 08:00 Random Glucose 95 mg/dL (74-106) 08/08/18 08:00 Calcium 8.7 mg/dL (8.5-10.1) 08/08/18 08:00 Total Bilirubin 0.3 mg/dL (0.2-1) 08/08/18 08:00 AST 31 U/L (15-37) 08/08/18 08:00 ALT 41 U/L (13-61) 08/08/18 08:00 Alkaline Phosphatase 97 U/L (45-117) 08/08/18 08:00 Total Protein 6.7 g/dl (6.4-8.2) 08/08/18 08:00 Albumin 3.5 g/dl (3.4-5.0) 08/08/18 08:00 RPR Titer Nonreactive (NONREACTIVE) 08/08/18 08:00 Assessment: 08/09/18 10:19 withdrawal symptom Plan: continue detox
--- NOTE | 2018-08-09 10:25 | PN ---
[facility] COWS - Scale Resting Pulse: 1= [place] 81-100 Sweatin= Chills/Flushing Restless Observation: 1= Difficult to Sit Still Pupil Size: 1= Pupils >than Normal Bone or Joint Aches: 2= Severe Diffuse Aches Runny Nose/ Eye Tearin= Runny Nose/Eyes GI Upset > 30mins: 2= Nausea/Diarrhea Tremor Observation of Outstretched Hands: 2= Slight Tremor Visible Yawning Observation: 1= 1-2x During Session Anxiety or Irritability: 2=Irritable/Anxious Goose Flesh Skin: 0=Smooth Skin COWS Score: 15 [facility] Progress Note (SOAP) Subjective: alert,irritable,anxious,interrupted sleep,pain in the body,tremor Objective: 08/09/18 10:23 t97.7,p82,r18,bp 132/94 Assessment: 08/09/18 10:24 withdrawal symptom Plan: continue detox
[2018-08-09] MEDS: PRENATAL VITAMINS W/ FOLIC ACID TABLET (FP) PO SCH (10:35)
[2018-08-09] MEDS: NICOTINE 14 MG/24 HOURS TOPICAL PATCH TD SCH (10:36)
--- NOTE | 2018-08-09 13:45 | DS ---
[facility] Detox Discharge Summary Admission Date: 08/08/18 Discharge Date: 08/09/18 - History Present History: Opioid Dependence, Sedative Dependence - Physical Exam Results Vital Signs: Vital Signs Temperature 98.2 F 08/09/18 09:20 Pulse Rate 68 08/09/18 09:20 Respiratory Rate 18 08/09/18 09:20 Blood Pressure 134/88 08/09/18 09:20 O2 Sat by Pulse Oximetry (%) - Treatment Hospital Course: Discharged Condition Good - Medication Discharge Medications: Ambulatory Orders NK [No Known Home Medication] 09/26/16 - AMA Did Patient Leave Against Medical Advice: Yes (going home.)
--- NOTE | 2018-08-09 13:45 | PN ---
[facility] Progress Note Note: pt states he has a family situation to take care of and needs to leave. Pt was advised not to leave and stay to complete detox; however he insisted on leaving and signed out AMA.
[2018-08-10] MEDS ORDERED: METHADONE HCL 5 MG TABLET (FOR DETOX USE ONLY) PO ONE (06:00)
== END 2018-08-09 13:55 | disposition left against medical advice (07) | DRG 770 ==
LOC: YASAS 21:27 → Y6N 08-08 00:15
PROVIDERS: ADMIT Surgery; ATTEND Surgery
PROC: HZ2ZZZZ Detoxification Services for Substance Abuse Treatment (ICD-10-PCS; principal; 2018-08-08)
DX: F10.230 Alcohol dependence with withdrawal, uncomplicated (principal); F17.210 Nicotine dependence, cigarettes, uncomplicated; J45.20 Mild intermittent asthma, uncomplicated
CPT/HCPCS: 36415; 80053; 85027; 86593